=== PATIENT | female | born 2000 | race Caucasian/White ===

== ENCOUNTER 2022-03-11 22:43 | Emergency (ER) | payer OTHER ==
[2022-03-11] MEDS ORDERED: Ondansetron PF 4 MG/2 ML Vial ONE (23:47)
[2022-03-11 23:55] LABS: #Eosinphils 0.1 10x3/uL (0.0-0.5); #Monocytes 0.4 10x3/uL (0.0-1.1); #Neutrophils 5.7 10x3/uL (1.5-8.4); %Basophils 0.4 % (0.0-2.0); %Eosinophils 1.1 % (0.0-6.0); %Lymphocytes 23.7 % (18.0-47.0); %Monocytes 4.3 % (0.0-10.0); %Neutrophils 70.1 % (40.0-75.0); Hemoglobin 12.4 g/dL (12.0-15.5); Mean Corpuscular HGB CONC 33.2 g/dL (32.0-36.0); Mean Corpuscular Hemoglobin 27.4 pg (27.0-33.0); Mean Corpuscular Volume 82.7 fl (81.6-98.3); Mean Platelet Volume 8.8 fl (7.4-10.4); Platelet Count 342 10x3/uL (150-450); RBC Distribution Width 12.1 % (11.5-14.5); Red Blood Cell (RBC) Count 4.52 10x6/uL (3.90-5.03); White Blood Cell (WBC) Count 8.2 10x3/uL (3.5-10.5)
[2022-03-11 23:57] LABS: Bilirubin Neg (Negative); Blood, Urine 25 (Negative); Clarity Cloudy (Clear); Glucose, Urine (Dipstick) Normal (Negative); Ketone, Urine 15 mg/dL (Negative); Leukocyte 500 (Negative); Nitrite Negative (Negative); Protein, Urine (Dipstick) 15 mg/dl (Neg-Trace); Urobilinogen Normal mg/dL (Less than 2)
[2022-03-12 00:01] LABS: BHCG - Serum Negative (NEGATIVE); Pregs Control Background? CLEAR/WHITE (CLR/WHITE); Pregs Control Bar Appear? YES (CONTROL BAR)
[2022-03-12 00:06] LABS: ALT (SGPT) 17 U/L (8-55); AST (SGOT) 19 U/L (5-34); Albumin 4.6 g/dL (3.5-5.0); Alkaline Phosphatase 60 U/L (40-110); Anion Gap 14 mmol/L (10-20); BUN (Urea Nitrogen) 9 mg/dL (7.0-18.7); Bilirubin, Total 0.4 mg/dL (0.2-1.2); Calc. Creatinine Clearance 0 mL/min (70-130); Calcium 9.5 mg/dL (7.8-10.44); Carbon Dioxide 24 mmol/L (22-29); Chloride 106 mmol/L (98-107); Estimated GFR 84; Globulin 3.3 g/dL (2.4-3.5); Glucose 111 mg/dL (70-105); Lipase 25 U/L (8-78); Potassium 3.9 mmol/L (3.5-5.1); Protein, Total 7.9 g/dL (6.0-8.3); Sodium 140 mmol/L (136-145)
[2022-03-12 00:07] LABS: Pregnancy Test - Urine (BHCG) Negative (Negative); Pregu Control Background? CLEAR/WHITE (CLR/WHITE); Pregu Control Bar Appear? YES (CONTROL BAR)
[2022-03-12] MEDS ORDERED: Morphine 4 MG/ML VIAL ONE (00:10)
[2022-03-12] MEDS ORDERED: Ketorolac Tromethamine 30 MG/ML VIAL ONE (00:11)
[2022-03-12 00:12] LABS: Bacteria/HPF 3+ HPF (None Seen)
[2022-03-12] MEDS ORDERED: Iopamidol 300 61% 100 ML VIAL FS ONE (10:55)
== END 2022-03-12 03:21 | disposition home or self-care (01) ==
LOC: CSHERS 22:43
DX: N39.0 Urinary tract infection, site not specified (principal)
CPT/HCPCS: 74177; 76705; 80053; 81003; 81015; 81025; 83690; 84703; 85025; 96374; 96375; J1885; J2270; J2405; Q9967